=== PATIENT | male | born 1975 | race Caucasian/White ===

== ENCOUNTER 2019-02-07 02:00 | Emergency (ER) | payer BC ==
[~2019-02-07] VITALS: Ht 190.5 cm; Wt 95.5 kg
[~2019-02-07 02:00] MED LIST: ATROVENT INHALE14 GM IH; CEPHALEXIN500 M1 PO; NORCO 325 MG-51 TAB PO; SOMA 350MG350 MG/TAB PO
[2019-02-07 02:03] VITALS: TEMP 97.5
[2019-02-07 02:30] LABS: BASO % 0.2 % (0.0-2.0); EOS # 0.1 (0.0-0.7); EOS % 0.9 % (0-4.0); GRAN # 5.7 (1.4-6.5); GRAN % 63.2 % (42.2-75.2); HEMATOCRIT 40.8 % (42.0-52.0); HEMOGLOBIN 13.7 g/dl (13.5-18.0); LYMPH # 2.6 (1.2-3.4); LYMPH % 29.2 % (20.0-51.0); MEAN CELL VOLUME 89 fl (80.0-100.0); MEAN CORPUSCULAR HEMOGLOBIN 30 pg (27.0-31.0); MEAN CORPUSCULAR HGB CONC 34 g/dl (33.0-37.0); MEAN PLATELET VOLUME 10.7 fl (7.4-10.4); MONO # 0.6 (0.1-0.6); MONO % 6.3 % (1.7-9.3); PLATELET COUNT 161 K/mm3 (130-400); RED BLOOD COUNT 4.59 M/mm3 (4.20-5.60); REDCELL DISTRIBUTION WIDTH-CV 13.1 % (11.5-14.5)
[2019-02-07 02:45] LABS: ALBUMIN 3.6 gm/dL (3.5-5.0); BILIRUBIN,TOTAL 0.2 mg/dL (0.0-1.0); CALCIUM 8.8 mg/dL (8.4-10.2); CREATININE, serum 0.64 mg/dL (0.66-1.25); TOTAL PROTEIN 6.4 gm/dL (6.4-8.2)
[2019-02-07] MEDS ORDERED: SUDAFED30 MG PO (04:24)
[2019-02-07] MEDS ORDERED: AMOXICILLIN/CLA1 TA1 PO (04:24)
[2019-02-07 04:31] VITALS: BP 128/75; PULSE 61
== END 2019-02-07 05:06 | disposition home or self-care (01) ==
LOC: COL.ER 02:00
PROVIDERS: Emergency Medicine
DX: J01.90 Acute sinusitis, unspecified (principal); B96.89 Other specified bacterial agents as the cause of diseases classified elsewhere; F17.210 Nicotine dependence, cigarettes, uncomplicated
CPT/HCPCS: A4216; J0696; J1885; J2405; J3010; J7030